=== PATIENT | female | born 1950 | race Hispanic/Latino ===

== ENCOUNTER 2019-12-27 14:21 | Emergency (ER) | payer MEDICARE ==
[~2019-12-27] VITALS: Ht 149.9 cm; Wt 73.9 kg
--- NOTE | 2019-12-27 15:00 | Emergency Department Note ---
History of Present Illnes History of Present Illness Chief Complaint: General Medicine Complaints History of Present Illness This is a 69 year old female STATES DIARRHEA AND FEVER X 3 DAYS BUT HAS NOW RESOLVED, AND NO COVID TESTING YET. STATES HERE FOR TESTING OF COVID TODAY. BROUGHT ADULT SON TO GET TESTED WELL. SAT 98 RA. Historian: Patient General Helper Required: No Onset (how long ago): day(s) (4) Radiation: Reports non-radiation Severity: moderate Onset quality: gradual Timing of current episode: intermittent Progression: improving Chronicity: new Context: Denies recent illness Relieving factors: none Exacerbating factors: none Associated symptoms: Reports denies other symptoms, Reports fever/chills, Reports other (DIARRHEA) Past Medical/Family History Physician Review I have reviewed the patient's past medical and family history. Any updates have been documented here. Past Medical History Recent Fever: No Clinical Suspicion of Infectio: No New/Unexplained Change in Ment: No Past Medical History: Hypertension, Diabetes, Hyperlipedemia Other Medical History: GERD Past Surgical History: None Social History Smoking Cessation: Never Smoker Counseling Performed: No Alcohol Use: None Any Illegal Drug Use: No TB Exposure/Symptoms: No Family History Family history of heart diseas: No Other Any Pre-Existing Lines (PICC,: No Review of Systems Review of Systems Constitutional: Reports as per HPI, Reports chills, Reports fever EENTM: Reports no symptoms Cardiovascular: Reports no symptoms Respiratory: Reports no symptoms Gastrointestinal: Reports as per HPI, Reports diarrhea; Denies nausea, Denies vomiting Genitourinary: Reports no symptoms Musculoskeletal: Reports no symptoms Integumentary: Reports no symptoms Neurological: Reports no symptoms Psychological: Reports no symptoms Endocrine: Reports no symptoms Hematological/Lymphatic: Reports no symptoms Physical Exam Related Data Allergies: Coded Allergies: No Known Allergies (Unverified , 12/27/19) Triage Vital Signs Vital Signs Date Time Temp Pulse Resp B/P (MAP) Pulse Ox O2 Delivery O2 Flow Rate FiO2 12/27/19 14:30 98.7 92 16 133/77 99 Room Air Vital signs reviewed: Yes Physical Exam CONSTITUTIONAL Constitutional: Present well-developed, Present well-nourished HENT HENT: Present normocephalic, Present atraumatic, Present oropharynx clear/moist, Present nose normal HENT L/R: Present left ext ear normal, Present right ext ear normal EYES Eyes: Reports PERRL, Reports conjunctivae normal NECK Neck: Present ROM normal PULMONARY Pulmonary: Present effort normal, Present breath sounds normal CARDIOVASCULAR Cardiovascular: Present regular rhythm, Present heart sounds normal, Present capillary refill normal, Present normal rate GASTROINTESTINAL Abdominal: Present soft, Present nontender, Present bowel sounds normal GENITOURINARY Genitourinary: Present exam deferred SKIN Skin: Present warm, Present dry MUSCULOSKELETAL Musculoskeletal: Present ROM normal NEUROLOGICAL Neurological: Present alert, Present oriented x 3, Present no gross motor or sensory deficits PSYCHOLOGICAL Psychological: Present mood/affect normal, Present judgement normal Assessment & Plan Medical Decision Making MDM DIARRHEA WHICH HAS RESOLVED, STILL WITH INTERMITTENT F/C AND ACHY ALL OVER Reassessment Reassessment GET COVID TEST, PLENTY OF FLUIDS, SELF-QUARANTINE, PRONING, F/U PCP Assessment & Plan Final Impression: (1) COVID-19 (2) Diarrhea Depart Disposition: HOME, SELF-CARE Last Vital Signs Date Time Temp Pulse Resp B/P (MAP) Pulse Ox O2 Delivery O2 Flow Rate FiO2 12/27/19 14:30 98.7 92 16 133/77 99 Room Air RODRIGO ALFONSO MD Dec 27, 2019 15:00
--- OUTSIDE RECORDS SUMMARY | 2019-12-27 15:08 | XMS REPORT | Continuity of Care Document ---
Author Author [facility] t Organization [facility] Address [address] [place] [id number] Phone Unavailable Care Team Providers Care Grain Spouter Name Role Phone Boogie ABDI, S Mimiba PCP Boogie ABDI, S Misba Attphys Mauro ABDI, C Axel Attphys Nikos ABDI, L Siomara Attphys Guera PRODUCT TRANSFER PUMPER, G Milagros Attphys Kindra DDS, T [facility] Payers Payer Name Policy Type Policy Number Effective Date Expiration Date Luba mcclain [facility] MEDIC[facility] HMOAMERIVANTAGExxxxx [id number].[id number], [place] [address] xxxxxxxxx 2019 00:00:00 [facility] [place] MEDICAIDTP24 QUALIFIED MEDICARE [id number], [place] [address] xxxxxxxxx 2017 00:00:00 [facility] PLANFINANCIAL ASSISTANCE PROGRAMxxx xxx2018-01/23/[id number] [place] [address] xxxxxx 2018 00:00:00 01-23 23:59:59 [facility] Problems Condition Name Condition Details Condition Category Status Onset Date Resolution Date Last Treatment Date Treating Clinician Comments Source Dental caries extending into dentin Dental caries extending into dentin Disease Active 2017-04-18 00:00:00 [facility] Edentulism Edentulism Disease Active 2017-04-06 00:00:00 [facility] Chronic periodontitis, localized, severe Chronic perio dontitis, localized, severe Disease Active 2016-11-13 00:00:00 [facility] Dental filling status Dental filling status Disease Active 201 11-25-12 00:00:00 [facility] Pain Pain Disease Active 2016-04-26 00:00:00 [facility] Severe uncontrolled diabetes mellitus Severe uncontrolled di abetes mellitus Disease Active 2015-09-23 00:00:00 [facility] Obesity, Class II, BMI 35-39.9 Obesity, Class II, BMI 35-39.9 Disea se Active 2015-09-23 00:00:00 [facility] ealth Elbow pain, left Elbow pain, left Disease Active 2013-08-31 00:00:00 [facility] Lesion of lip Lesion of lip Disease Active 2011-03-17 00:00:00 [facility] Rotator cuff disorder Rotator cuff disorder Disease Active 200 02-07-16 00:00:00 [facility] Polyneuropathy in diabetes(357.2) Polyneuropathy in diabetes(357 .2) Disease Active 2008-12-03 00:00:00 [facility] Allergies, Adverse Reactions, Alerts This patient has no known allergies or adverse reactions. Family History Family Member Diagnosis Comments Start Date Stop Date Source Natural brother Diabetes [facility] alth Natural father Heart [facility] Natural sister Diabetes [facility] Natural sister Heart [facility] Social History Social Habit Start Date Stop Date Quantity Comments Source Sex Assigned At [facility] Alcohol intake 2019-08-05 00:00:00 2019-08-05 00:00:00 Current non-drinker of alcohol (finding) [facility] History SDOH Food Worry 2018-06-20 00:00:00 2018-06-20 00:00:00 1 [facility] History [facility] Food Scarcity 2018-06-20 00:00:00 2018-06-20 00:00:00 1 [facility] Smoking Status Start Date Stop Date Source Never smoker [facility] Medications Ordered Medication Name Filled Medication Name Start Date Stop Da te Current Medication? Ordering Clinician Indication Dosage Frequency Signature (SIG) Comments Components Source acetaminophen-codeine (TYLENOL/CODEINE #3) 300-30 mg per tab let 2019-12-02 00:00:00 Yes Right hand pain Take 1 po q 4 h ours as needed for pain. [facility] insulin detemir U-100 (LEVEMIR FLEXTOUCH) 100 unit/mL (3 mL) Pen 2019-09-02 00:00:00 Yes Severe uncontrolled diabetes mellitus 60 U QD Inject 60 Units under the skin daily. [facility] albuterol 90 mcg/actuation inhaler 2019-08-05 00:00:00 Y es Cough 2{puff} Inhale 2 Puffs by mouth 4 times daily as needed for Wheezing. [facility] benzonatate (TESSALON PERLES) 100 mg capsule 00:00:00 2019-08-13 23:59:00 No Cough 100mg Take 1 capsule by mouth 3 times daily as needed for up to 7 days for Cough. [facility] polyethylene glycol (GOLYTELY) 236-22.74-6.74 -5.86 gram ora l solution 2019-07-28 00:00:00 Yes History of colon polyps Add lukewarm drinking water to the fill enzo (4 liters) and shake. Drink as directed by your doctor.. [facility] linaGLIPtin (TRADJENTA) 5 mg tablet 2019-07-07 00:00:00 Yes Type 2 diabetes mellitus treated with insulin 5mg QD Take 1 tablet by mo ut daily. [facility] insulin glargine U-300 conc (TOUJEO SOLOSTAR) 300 unit/mL (1 .5 mL) pen 2019-07-07 00:00:00 2019-09-02 00:00:00 No Type 2 d iabetes mellitus treated with insulin Inject 140 units sc q am an inject 60 units s c q pm. [facility] insulin aspart U-100 (NOVOLOG FLEXPEN U-100 INSULIN) 100 uni t/mL (3 mL) pen 2019-06-10 00:00:00 Yes Severe uncontrolled diabetes m ellitus 50U Inject 50 Units under the skin 3 times daily Use provided scale.. [facility] pen needle, diabetic 31 gauge x 3/16" needles 2019-06-10 00: 00:00 Yes Type 2 diabetes mellitus treated with insulin Inject under the skin 5 times daily. [facility] losartan (COZAAR) 50 mg tablet 2019-06-03 00:00:00 Yes Medication refill 25mg QD Take 0.5 tablets by mouth daily. [facility] pen needle, diabetic 31 gauge x 3/16" needles 20 13-02-25 00:00:00 2019-06-10 00:00:00 No Type 2 diabetes mellitus treated with insulin Inject under the skin 2times daily. [facility] INSULIN SYRINGE 1mL 30GX5/16" syringe-needle 201 02-04-24 00:00:00 2019-02-20 00:00:00 No Type 2 diabetes mellitus with insulin therapy Use as directed 2 veces al marian [facility] predniSONE (DELTASONE) 20 mg tablet 2018-12-24 00:00:00 Yes Right hand pain Take 3 tabs daily fo r three days then 2 tabs daily for three days then 1 tab daily for 7 days. [facility] triamcinolone (KENALOG) 0.025 % topical cream 2018-12-24 00: 00:00 Yes Right hand pain Q.5D Apply to affected area 2 times daily. [facility] acetaminophen-codeine (TYLENOL/CODEINE #3) 300-30 mg per tab let 2018-12-24 00:00:00 2019-12-02 00:00:00 No Right hand pain Take 1 po q 4 hours as needed for pain. [facility] clindamycin (CLEOCIN HCL) 150 mg capsule 2018-11 00:00:00 2019-01-04 23:59:00 No Right hand pain 150mg Take 1 ca psule by mouth 3 times daily for 10 days. [facility] INSULIN SYRINGE 1mL 30GX5/16" syringe-needle 201 02-01-22 00:00:00 2019-02-17 00:00:00 No Type 2 diabetes mellitus with insulin therapy Use as directed 2 veces al marian [facility] pravastatin (PRAVACHOL) 40 mg tablet 2018-12-12 00:00:00 Yes Hyperlipidemia, unspecified hyperlipidemia type 40mg Take 1 tablet by mouth at bedtime nightly. [facility] linaGLIPtin (TRADJENTA) 5 mg tablet 2018-11-05 00:00:0 0 2019-07-07 00:00:00 No Type 2 diabetes mellitus treated with insulin 5mg QD Take 1 tablet by mouth daily. [facility] hydrocortisone (ANUSOL-HC) 25 mg rectal suppository 10-07 00:00:00 Yes Constipation, unspecified constipation type 25mg Q.5D Insert 1 Suppository rectally 2 times daily. [facility] fluconazole (DIFLUCAN) 150 mg tablet 2018-10-07 00:00:00 Yes Postmenopausal atrophic vaginitis Take 1 po daily. [facility] ibuprofen (MOTRIN) 600 mg tablet 2018-06-20 00:00:00 2019-07 00:00:00 No Pain in joint of left shoulder 600mg Take 1 ta blet by mouth every 8 hours as needed for Pain Take with food. [facility] ealt Cyclobenzaprine (FLEXERIL) 5 mg tablet 2018-05-29 4 00:00:00 2019-07-28 00:00:00 No Pain in joint of left shoulder 5mg Take 1 tablet by mouth 3 times daily as needed for Muscle Spasms. [facility] th insulin glargine U-300 conc (TOUJEO SOLOSTAR) 300 unit/mL (1 .5 mL) pen 2018-06-13 00:00:00 2019-07-07 00:00:00 No Type 2 d iabetes mellitus treated with insulin Inject 140 units sc q am an inject 60 units s c q pm. [facility] fluticasone (FLONASE ALLERGY RELIEF) 50 mcg/actuation nasal spray 2018-05-08 00:00:00 Yes Nasal congestion 1{spray} QD Use 1 Marcy in each nostril daily. [facility] fluticasone (FLONASE ALLERGY RELIEF) 50 mcg/actuation nasal spray 2018-05-06 00:00:00 2019-07-28 00:00:00 No Non-seasonal allergic rhinitis due to pollen 1{spray} QD Use 1 Marcy in each nostril daily. [facility] ciclesonide (ZETONNA) 37 mcg/actuation nasal HFA inhaler 2018-05-02 00:00:00 Yes Acute upper respiratory infection 1{spray} QD Use 1 Marcy in each nostril daily. [facility] cetirizine (ZYRTEC) 10 mg tablet 2018-05-02 00:00:00 2019-07 00:00:00 No Acute upper respiratory infection 10mg QD Take 1 tablet by mouth d aily. [facility] azithromycin (ZITHROMAX) 250 mg tablet 6 00:00:00 2019-07-28 00:00:00 No Acute upper respiratory infection Take 2 tablets by mouth on the first day, then take one tablet every day for the next 4 days. [facility] benzonatate (TESSALON PERLES) 100 mg capsule 201 01-06-06 00:00:00 2019-07-28 00:00:00 No Acute upper respiratory infection 100mg Take 1 capsule by mouth 3 times daily as needed for Cough. [facility] blood glucose test strips 2018-03-11 00:00:00 2019-07-28 00: 00:00 No Type 2 diabetes mellitus treated with insulin U se to check Blood Glucose two times a day (Pt is on insulin). [facility] BLOOD GLUCOSE METER monitoring kit 2018-03-11 00:00:00 00:00:00 No Type 2 diabetes mellitus treated with insulin uSE DIRECTED [facility] lancets 33 gauge Misc 2018-03-11 00:00:00 2019-07-28 00:00:0 0 No Type 2 diabetes mellitus treated with insulin CHECK BOOD SUGAR tw ice a day [facility] levothyroxine (SYNTHROID) 50 mcg tablet 00:00:00 2019-07-28 00:00:00 No Acquired hypothyroidism 50ug QD Take 1 tablet b y mouth daily. [facility] losartan (COZAAR) 50 mg tablet 2018-03-11 00:00:00 00:00:00 No Medication refill 25mg QD Take 0.5 tablets by mouth daily. [facility] lancets 2018-03-06 00:00:00 Yes Type 2 diabetes mellitus treated without insulin Check sugars three times daily. [facility] blood glucose test strips 2018-03-06 00:00:00 Yes Type 2 diabetes mellitus treated without insulin Check sugars three times daily. [facility] Insulin [place], Disposable, (NOVOFINE 32) 32 gauge x 1/4" N dle 2017-12-06 00:00:00 Yes Type 2 diabetes mellitus treated with in sulin by [facility]Non- Drug; Combo Route) route. [facility] pen needle, diabetic (TRUEPLUS PEN NEEDLE) 31 gauge x 3/16" needles 2017-12-06 00:00:00 2019-07-28 00:00:00 No Type 2 diabetes melli tus treated with insulin Q.5D Inject under the skin 2 times daily. [facility] nystatin (MYCOSTATIN) topical cream 2017-10-09 00:00:0 0 2019-07-28 00:00:00 No Type 2 diabetes mellitus treated with insulin Q.5D Apply to affected area 2 times daily. [facility] insulin REGULAR 100 unit/mL injection 2017-10-09 00:00 :00 2019-07-02 00:00:00 No Type 2 diabetes mellitus treated with insulin Check sugars three times daily If blood sugars 150 to 200 inject 2 units sc 200 to 250 inject 4 units sc250 to 300 inject 6 units sc 300 to 350 inject 8 units sc More than 350 call MD. [facility] blood glucose meter 2017-08-20 00:00:00 Yes Type 2 diabetes mellitus treated with insulin Use as directed.. [facility] beclomethasone (QVAR) 80 mcg/actuation inhaler 2017-06-05 00 :00:00 Yes Cough 2{puff} Q.5D Inhale 2 Puffs by mouth 2 times daily. [facility] dexlansoprazole (DEXILANT) 30 mg delayed release capsule 2017-02-22 00:00:00 2019-07-28 00:00:00 No Abdominal pain, epigastric 30mg QD Take 1 capsule by mouth daily. [facility] albuterol (VENTOLIN HFA,PROVENTIL HFA,PROAIR HFA) 90 mcg/act uation inhaler 2016-10-11 00:00:00 2019-08-05 00:00:00 No Cough 2{puff} Inhale 2 Puffs by mouth 4 times daily as needed for Wheezing or Shortness of Breath. 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 [facility] insulin detemir (LEVEMIR) 100 unit/mL injection 2016-05-04 00:00:00 2019-06-10 00:00:00 No Type 2 diabetes mellitus with other circulatory complication Inject 120 units under skin every morning and 100 units in the evening. [facility] insulin detemir (LEVEMIR) 100 unit/mL injection 2016-03-07 00:00:00 2019-06-10 00:00:00 No Type 2 diabetes with nephropathy Inject 120 sc q am and 90 units sc q pm. [facility] insulin detemir (LEVEMIR) 100 unit/mL injection 2016-01-12 00:00:00 2019-06-10 00:00:00 No Polyneuropathy in diabetes(357.2) Inject under the rwaj264 units every morning and 30 units every evening [facility] blood glucose test strips 2015-12-06 00:00:00 2019-07-28 00: 00:00 No Polyneuropathy in diabetes(357.2) Check sugars three times a day. [facility] dicyclomine (BENTYL) 20 mg tablet 2015-05-17 00:00:00 2019 00:00:00 No Type II or unspecified type diabetes tanner litus without mention of complication, uncontrolled Take 1 po qid prn abd cramping. [facility] triamcinolone (KENALOG) 0.025 % topical cream 11-05-21 00:00:00 2019-07-28 00:00:00 No Type II or unspecifi ed type diabetes mellitus without mention of complication, uncontrolled Q.5D Apply to affe cted area 2 times daily Apply small amountto dry skin over neck q twice daily. [facility] triamcinolone (KENALOG) 0.025 % topical cream 2015-03-24 00: 00:00 Yes Medication refill Q.5D Apply to affected area 2 times daily. [facility] predniSONE (DELTASONE) 20 mg tablet 2014-09-09 00:00:00 Yes Rash and other nonspecific skin eruption Take 3 tabs da jerome for 3 days, then 2 tablets daily for 3 days, then 1 tablet daily for 7 days. [facility] ketoconazole (NIZORAL) 2 % shampoo 2014-06-23 00:00:00 202 00:00:00 No Polyneuropathy in diabetes(357.2) Apply small amount to hair and rinse twice a week. [facility] nystatin (MYCOSTATIN) topical cream 2014-06-23 00:00:0 0 2019-07-28 00:00:00 No Polyneuropathy in diabetes(357.2) Q.5D Apply to affected area 2 times daily. [facility] clotrimazole (LOTRIMIN) 1 % external solution 08-12-14 00:00:00 2019-07-28 00:00:00 No Onychomycosis File nails and apply 2 drops 2 times day for 1 year. [facility] blood glucose test strips 2013-02-13 00:00:00 2019-07-28 00: 00:00 No Polyneuropathy in diabetes(357.2) Check q am and q pm [facility] glucose blood test strips (PRECISION XTRA TEST STRIPS) strip 2012-02-05 00:00:00 2019-07-28 00:00:00 No DM (diabetes mellitus) Use as directed. [facility] PRECISION XTRA GLUCOMETER 2009-12-21 00:00:00 Yes Polyneuropathy in diabetes(357.2) check q am [facility] Immunizations Ordered Immunization Name Filled Immunization Name Date Status Comments Source Influenza, Vaccine<FLUCELVAX>(Multi-Dose) 2019-03-11 00:00 :00 Completed [facility] PCV 13 (Pnuemococcal Conjugated 13 Valent) 2018-03-11 00:0 0:00 Completed [facility] Influenza, Vaccine<FLUCELVAX>(Multi-Dose) 2018-03-01 00:00 :00 Completed [facility] Influenza Vaccine, Seasonal, Injectable 2017-03-30 00:00:0 0 Completed [facility] Influenza Vaccine 2016-03-02 00:00:00 Completed [facility] Tdap Tetanus, diphtheria, acellular pertussis Vaccine 2015-10-13 00:00:00 Completed [facility] Influenza Vaccine 2015-02-24 00:00:00 Completed [facility] Influenza Vaccine 2014-03-17 00:00:00 Completed [facility] PPV 23 Pneumococcal Polysaccaride 2014-03-17 00:00:00 Comp leted [facility] Influenza Vaccine 2013-03-05 00:00:00 Completed [facility] Influenza Vaccine 2011-03-16 00:00:00 Completed [facility] Influenza Vaccine 2010-04-01 00:00:00 Completed [facility] Influenza Vaccine 2009-04-05 00:00:00 Completed [facility] Vital Signs Vital Name Observation Time Observation Value Comments Source Systolic blood pressure 2019-08-05 22:17:00 125 mm[Hg] [facility] Diastolic blood pressure 2019-08-05 22:17:00 63 mm[Hg] [facility] Heart rate 2019-08-05 22:17:00 82 /min [facility] Body temperature 2019-08-05 22:17:00 36.67 [place] [facility] Respiratory rate 2019-08-05 22:17:00 18 /min [facility] Oxygen saturation in Arterial blood by Pulse oximetry 08-04 22:17:00 100 /min [facility] Body height 2019-08-05 10:10:00 139.7 cm [facility] Body weight 2019-08-05 10:10:00 71.668 kg [facility] BMI 2019-08-05 10:10:00 36.72 kg/m2 [facility] Procedures Procedure Date / Time Performed Performing Clinician [facility] ECHG EKG PROC 12 LEAD EKG; TRACING ONLY 2019-08-05 22:23:57 Siomara Knott [facility] XRAY CHEST 2 VIEWS 2019-08-05 14:46:06 Jeannette Gee [facility] GLUCOSE POC 2019-08-05 14:11:00 Unknown, Provider Todd sheryl [facility] ECHG EKG PROC 12 LEAD EKG; TRACING ONLY 2019-08-05 11:10:21 Late ef, [facility] NONINVASV OXYGEN SATUR;SINGLE 2019-08-05 10:47:38 Boogie, [facility] MICROALBUMIN / CREATININE URINE RATIO 2019-07-09 10:35:00 Boogie , [facility] URINALYSIS 2019-07-09 10:35:00 Boogie, [facility] URINALYSIS 2019-07-09 10:35:00 Boogie, [facility] HEMOGLOBIN A1C 2019-07-09 07:36:00 Boogie, [facility] CBC/DIFF 2019-07-09 07:36:00 Boogie, [facility] h BASIC METABOLIC PANEL 2019-07-09 07:36:00 Boogie, Rossolini S [facility] LIPID PROFILE 2019-07-09 07:36:00 Boogie, Rossoliniba S [facility] LIVER PROFILE 2019-07-09 07:36:00 Boogie, [facility] h THYROID STIMULATING HORMONE (TSH) 2019-07-09 07:36:00 Boogie, Dc sba [facility] VIT D, 25-HYDROXY 2019-07-09 07:36:00 Boogie, [facility] CBC 2019-07-09 07:36:00 Boogie, [facility] DIABETIC FOOT EXAM 2019-07-02 08:29:46 Saúl Hyman Brooks [facility] URIC ACID 2019-01-21 07:15:00 Saúl Hyman [facility] HEMOGLOBIN A1C 2019-01-21 07:15:00 Saúl Hyman [facility] BASIC METABOLIC PANEL 2019-01-21 07:15:00 BoogieSaúl degroot [facility] LIPID PROFILE 2019-01-21 07:15:00 Saúl Hyman [facility] Plan of Care Planned Activity Planned Date Details Comments Source [facility] Scheduled Test 2024-03-11 00:00:00 Screening for gasper gnant neoplasm of colon (procedure) [code = 018488114] [facility] Scheduled Test 2020-07-09 00:00:00 Hemoglobin A1c giana surement (procedure) [code = 48784535] [facility] Scheduled Test 2020-07-02 00:00:00 DM Foot Exam (Year ly) [code = DM Foot Exam (Yearly)] [facility] Scheduled Test 2019-11-06 00:00:00 DM Retinal Exam (Y early) [code = DM Retinal Exam (Yearly)] [facility] Scheduled Test 2019-08-01 00:00:00 Breast Cancer Scrn (Yearly) [code = Breast Cancer Scrn (Yearly)] [facility] Encounters Start Date/Time End Date/Time Encounter Type Admission Type Attendi RUST Care Department Encounter ID Source 2019-06-10 00:00:00 2019-06-10 00:00:00 Outpatient [facility] [id number] [facility] 2019-04-09 00:00:00 2019-04-09 00:00:00 Outpatient [facility] [id number] [facility] 2019-03-24 00:00:00 2019-03-24 00:00:00 Outpatient [facility] [id number] [facility] 2019-03-11 09:19:23 2019-03-11 09:19:23 Outpatient [facility] [id number] [facility] 2019-03-11 00:00:00 2019-03-11 00:00:00 Outpatient [facility] [id number] [facility] 2019-03-10 00:00:00 2019-03-10 00:00:00 Outpatient [facility] [id number] [facility] 2019-02-04 15:33:19 2019-02-04 15:33:19 Outpatient [facility] [id number] [facility] 2019-01-21 07:15:26 2019-01-21 07:15:26 Outpatient [facility] [id number] [facility] 2019-01-21 00:00:00 2019-01-21 00:00:00 Outpatient [facility] [id number] [facility] 2018-12-24 14:31:14 2018-12-24 14:31:14 Outpatient [facility] [id number] [facility] 2018-12-24 13:43:52 2018-12-24 13:43:52 Outpatient [facility] [id number] [facility] 2018-12-24 00:00:00 2018-12-24 00:00:00 Outpatient [facility] [id number] [facility] 2018-11-07 00:00:00 2018-11-07 00:00:00 Outpatient [facility] [id number] [facility] 2018-11-05 09:08:04 2018-11-05 09:08:04 Outpatient [facility] [id number] [facility] 2018-11-05 08:42:47 2018-11-05 08:42:47 Outpatient [facility] [id number] [facility] 2018-11-05 08:35:26 2018-11-05 08:35:26 Outpatient [facility] [id number] [facility] 2018-11-05 00:00:00 2018-11-05 00:00:00 Outpatient [facility] [id number] [facility] 2018-10-11 08:13:19 2018-10-11 08:13:19 Outpatient [facility] [id number] [facility] 2018-10-07 07:24:46 2018-10-07 07:24:46 Outpatient [facility] [id number] [facility] 2018-08-26 00:00:00 2018-08-26 00:00:00 Outpatient [facility] [id number] [facility] 2018-08-19 07:00:14 2018-08-19 07:00:14 Outpatient [facility] [id number] [facility] 2018-08-19 00:00:00 2018-08-19 00:00:00 Outpatient [facility] [id number] [facility] 2018-07-31 08:03:46 2018-07-31 08:03:46 Outpatient [facility] [id number] [facility] 2018-07-24 00:00:00 2018-07-24 00:00:00 Outpatient [facility] [id number] [facility] 2018-07-16 10:41:38 2018-07-16 10:41:38 Outpatient [facility] [id number] [facility] 2018-07-16 00:00:00 2018-07-16 00:00:00 Outpatient [facility] [id number] [facility] 2018-06-20 08:49:41 2018-06-20 08:49:41 Outpatient [facility] [id number] [facility] 2018-06-20 08:24:29 2018-06-20 08:24:29 Outpatient [facility] [id number] [facility] 2018-06-19 00:00:00 2018-06-19 00:00:00 Outpatient [facility] [id number] [facility] 2018-06-13 06:46:45 2018-06-13 06:46:45 Outpatient [facility] [id number] [facility] 2018-06-07 13:53:35 2018-06-07 13:53:35 Outpatient [facility] [id number] [facility] 2018-06-07 06:50:19 2018-06-07 06:50:19 Outpatient [facility] [id number] [facility] 2018-06-07 00:00:00 2018-06-07 00:00:00 Outpatient [facility] [id number] [facility] 2018-05-02 08:26:59 2018-05-02 08:26:59 Outpatient [facility] [id number] [facility] 2018-03-22 09:42:59 2018-03-22 09:42:59 Outpatient [facility] [id number] [facility] 2018-03-11 06:48:24 2018-03-11 06:48:24 Outpatient [facility] [id number] [facility] 2017-04-18 00:00:00 2017-04-18 00:00:00 Outpatient [facility] [id number] [facility] 2017-04-09 06:57:31 2017-04-09 06:57:31 Outpatient [facility] [id number] [facility] 2017-04-02 13:15:08 2017-04-02 13:15:08 Outpatient [facility] [id number] [facility] 2017-03-30 07:51:20 2017-03-30 07:51:20 Outpatient [facility] [id number] [facility] 2017-03-01 07:12:34 2017-03-01 07:12:34 Outpatient [facility] [id number] [facility] 2017-02-27 06:51:23 2017-02-27 06:51:23 Outpatient [facility] [id number] [facility] 2017-02-22 07:55:53 2017-02-22 07:55:53 Outpatient [facility] [id number] [facility] 2017-02-22 00:00:00 2017-02-22 00:00:00 Outpatient [facility] [id number] [facility] 2017-02-19 13:30:40 2017-02-19 13:30:40 Outpatient [facility] [id number] [facility] 2017-02-19 00:00:00 2017-02-19 00:00:00 Outpatient [facility] [id number] [facility] 2017-02-16 00:00:00 2017-02-16 00:00:00 Outpatient [facility] [id number] [facility] 2016-10-11 00:00:00 2016-10-11 00:00:00 Outpatient [facility] [id number] [facility] Results Test Description Test Time Test Comments Results Result Comments Source 12 LEAD EKG 2019-08-06 09:24:23 12 [facility]AD [facility]: [id number] Name: BARRY Landeros Department: 6520Patient ID: [id number] Room: Gender: Curatorial Assistant: [facility]: 1950 Requested By: SIOMARA Ahn Number: [id number] Cherry MD: Sebastian ADHIKARI MeasurementsIntervals [place] Rate: 71 P: 47PR: 166 QRS: -6QRSD: 82 T: 26QT: 368 QTc: 401 Interpretive StatementsSINUS RHYTHMLOW QRS VOLTAGE IN PRECORDIAL LEADSMotion artifactPoor R Wave ProgressionAbnormal ECGElectronically Signed On 08-06-2019 9:24:18 CDT by Sebastian MCLAIN [facility] XRAY CHEST 2 VIEWS 2019-08-05 14:47:15 IMPRESSIO N: No acute pleuropulmonary abnormality. Signed By: Preston Griggs MD, 08/05/2019 2:47 PM Interface, Rad/Mammog In - 08/05/2019 2:52 PM CDTXRAY CHEST 2 VIEWSDATE: 08/05/2019 2:46 PMCLINICAL INDICATION: cough COMPARISON: Chest x-ray performed 11/24/2008TECHNIQUE: PA and lateral views of the chest are obtained and submittedfor interpretation. DISCUSSION: The lungs are clear. No consolidation or airspace disease is identified.Costophrenic angles are sharp. There is no pleural effusion orpneumothorax. Cardiomediastinal silhouette is normal in size, contour and shape. The tracheal lumen is midline. No destructive or traumatic bony lesion is seen. Thoracic spondylosis ispresent.Surrounding soft tissues are unremarkable.IMPRESSIONIMPRESSION:No acute pleuropulmonary abnormality.Signed By: Preston Griggs MD, 08/05/2019 2:47 PM [place] ([facility]) POCT GLUCOSE POC docked device 2019-08-05 14:30:00 Test Item Glucose POC (test code = 09540158) 187 mg/dL 74-106 H Lab Interpretation (test code = 70435-8) Abnormal [place] ([facility])12 LEAD [id number] 11:55:4312 LEAD EKG FOR [facility] Test Date: [id number] Name: BARRY ESPINOZA Department: [address] [place] [address] ID: [id number] Room: Gender: F Curatorial Assistant: [id number]: 1950 Requested By: SAÚL HYMAN SOrder Number: [id number] Reading MD: Kacy Arciniega MD MeasurementsIntervals [place] Rate: 74 P: 29PR: 164 QRS: -11QRSD: 89 T: 32QT: 357 QTc: 398 Interpretive StatementsSINUS RHYTHMElectronically Signed On 08-05-2019 11:55:39 CDT by Kacy Arciniega MD [facility] [place] ([facility])Vitamin D, 89-Ktufeqnasusttmclv5008-63-13 11:51:00* Test Item Value Reference Range Interpretation Comments Vit D, 25-Hydroxy (test code = 45795787) 19.4 ng/mL 30-100 L Vitamin D Interpretation (test code = 91072378) Deficient Suffic ient A Sufficient: >30.0Insufficient: 20.0 - 29.9Deficient: <20.0 Lab Interpretation (test code = 07922-2) Abnormal [place] ([facility])Hemoglobin [id number] 14:18:00* Test Item Value Reference Range Interpretation Comments Hemoglobin A1c (test code = 4548-4) 9.3 % 4.3-6.1 H Estimated Average Glucose (test code = 29925297) 220 mg/dL 70-11 0 H Lab Interpretation (test code = 46595-7) [facility]-46 14:00:00* Test Item Value Reference Range Interpretation Comments WBC (test code = 6690-2) 7.5 K/uL 4.5-11 RBC (test code = 789-8) 4.30 4.20- 5.40 M/uL Hemoglobin (test code = 718-7) 13.1 g/dL 12-16 Hematocrit (test code = 4544-3) 40.7 % 37-47 MCV (test code = 787-2) 94.7 fL 82-92 H MCH (test code = 785-6) 30.5 pg 27-32 MCHC (test code = 786-4) 32.2 g/dL 32-36 RDW (test code = 35594-3) 42.0 fL 36.4-46.3 Platelet (test code = 777-3) 270 K/uL 150-400 Mean Platelet Volume (test code = 08511-5) 11.2 fL 9.4-12.4 Percent NRBC (test code = 23603018) 0.0 % Neutrophil (test code = 770-8) 59.7 % 34-70 Lymphs (test code = 736-9) 31.6 % 20-50 Monocytes (test code = 5905-5) 6.7 % 5-12 Eos (test code = 713-8) 1.5 % 0.7-5 Basos (test code = 706-2) 0.1 % 0.1-1.2 Immature Granulocytes (test code = 87447437) 0.4 % 0-0.5 Neutrophils (Absolute) (test code = 68175975) 4.45 K/uL 1.56-6.1 3 Lymphs (Absolute) (test code = 14721254) 2.36 K/uL 1.18-3.74 Monocytes(Absolute) (test code = 78388587) 0.50 K/uL 0.24-0.36 H Eos (Absolute) (test code = 54393137) 0.11 K/uL 0.04-0.36 Baso (Absolute) (test code = 97844045) 0.01 K/uL 0.01-0.08 Immature Grans (Abs) (test code = 59496476) 0.03 K/uL 0-0.03 Absolute NRBC (test code = 39829025) 0.00 K/uL Lab Interpretation (test code = 67215-7) [facility] Wfawx8109-06-34 13:59:00* Test Item Value Reference Range Interpretation Comments Microalbumin, Random (test code = 28844572) 4.7 mg/dL <30.0 Creatinine, Urine (test code = 48424272) 77 mg/dL 20-320 Urine Microalbumin (test code = 26965652) 61.0 mg/g 0-30 H Lab Interpretation (test code = 61323-4) Abnormal [facility] [Thyroid Stimulating Hormone]2019-07-09 13:37:00* Test Item Value Reference Range Interpretation Comments TSH (test code = 32496655) 9.96 0.45- 5.33 uIU/mL H If , please see the following reference ranges (not verified by lab): 1st Trimester: 0.05 -3.70 uIU/mL2nd Trimester: 0.31 -4.35 uIU/mL3rd Trimester: 0.41 - 5.18 uIU/mL Lab Interpretation (test code = 87473-9) [facility] Gsntm1428-53-65 13:29:00* Test Item Value Reference Range Interpretation Comments Sodium (test code = 2951-2) 136 mmol/L 136-145 Potassium (test code = 2823-3) 4.6 mmol/L 3.5-5.1 Chloride (test code = 2075-0) 100 mmol/L 98-107 CO2 (test code = 61976961) 26 mmol/L 21-31 Urea Nitrogen (test code = 90991754) 15.0 mg/dL 7-25 Creatinine (test code = 98752682) 0.8 mg/dL 0.6-1.2 Glucose (test code = 89925300) 288 mg/dL 70-110 H Calcium (test code = 85314990) 9.1 mg/dL 8.6-10.3 GFR, Estimated (test code = 69341174) 72 >=90 mL/min/1.73 m2 L Anion Gap (test code = 56740426) 10 mmol/L 5-16 Lab Interpretation (test code = 37352-7) Abnormal [facility]28 13:29:00* Test Item Value Reference Range Interpretation Comments Cholesterol (test code = 2093-3) 205.0 mg/dL <=200.0 H Triglyceride (test code = 79005560) 200 mg/dL <150 H HDL (test code = 2085-9) 55.0 mg/dL See Reference Range Narrative . LDL (test code = 87350-4) 110 mg/dL <100 H Op timal: < 100.0 mg/dLNear Optimal: 120-129 mg/dLBorderline: 130-159 mg/dLHigh: 160-189 mg/dLVery High: >=190 mg/dL Patient Fasting? (test code = 53712253) Yes Lab Interpretation (test code = 69204-4) Abnormal [facility] Suicebk8047-56-59 13:29:00* Test Item Value Reference Range Interpretation Comments Bilirubin, Total (test code = 2885-2) 0.2 mg/dL 0.2-1.2 Alkaline Phosphatase (test code = 80120091) 136 U/L 34-104 H AST (test code = 86358696) 14 U/L 13-39 Direct Bilirubin (test code = 1968-7) 0.0 mg/dL 0-0.2 ALT (test code = 31698137) 19 U/L 7-52 Albumin (test code = 61711-0) 3.8 g/dL 3.7-5.3 Lab Interpretation (test code = 85593-4) Abnormal [facility] TpysqmBmjjaoarwd4564-15-10 13:12:00* Test Item Value Reference Range Interpretation Comments Color (test code = 33588849) Yellow Colorless, Straw, Yellow Clarity (test code = 07401875) Clear Clear Spec [place], Ur (test code = 83742350) 1.020 1.001-1.035 pH, Ur (test code = 48027240) 6.0 5.0-8.0 Protein, Ur (test code = 11518302) Negative Negative mg/dL Glucose, Ur (test code = 28398261) 3+ Negative mg/dL A Ketone, Ur (test code = 51548605) Negative Negative mg/dL Bilirubin, Ur (test code = 99493316) Negative Negative mg/dL Nitrite, Ur (test code = 54505794) Negative Negative Leukocyte (test code = 38536420) Negative Negative mg/dL Blood, Ur (test code = 50612999) Negative Negative mg/dL Urobilinogen, Ur (test code = 39329165) <1.0 <1.0 EU/dL Lab Interpretation (test code = 02502-2) [facility] [id number] 08:29:46Saúl Hyman MD 07/02/2019 10:42 AMDiabetic Foot Exam was performed at 07/02/2019 8:29 AM. Right foot sensation is reduced, right foot pulses are reduced, right foot appearance is abnormal. Left foot sensation is reduced, left foot pulses are reduced, left foot appearance is abnormal. [facility]
--- OUTSIDE RECORDS SUMMARY | 2019-12-27 15:08 | XMS REPORT | Clinical Summary ---
Author Author [facility] Organization [facility] Address Unknown Phone Unavailable Care Team Providers Care Buttermaker Continuous Churn Name Role Phone Saúl Hyman MD PCP Allergies No Known Allergies Medications End Date Status Medication Sig Dispensed Refills Start Date Active PRECISION XTRA check q am 1 0 GLUCOMETERIndications: 0 Polyneuropathy in diabetes(357.2) Active predniSONE (DELTASONE) 20 Take 3 tabs 22 tablet 0 mg tabletIndications: daily for 3 5 Rash and other days, then 2 nonspecific skin eruption tablets daily for 3 days, then 1 tablet daily for 7 days. Active triamcinolone (KENALOG) Apply to 80 g 0 0.025 % topical affected area 5 creamIndications: 2 times Medication refill daily. Active beclomethasone (QVAR) 80 Inhale 2 8.7 g 3 0 mcg/actuation Puffs by 8 inhalerIndications: Cough mouth 2 times daily. Active blood glucose Use as 1 Kit 0 meterIndications: Type 2 directed.. 8 diabetes mellitus treated with insulin Active Insulin [place], by 100 Each 11 Disposable, (NOVOFINE 32) [facility]Non[place] 8 32 gauge x 1/4" g; Combo NdleIndications: Type 2 Route) route. diabetes mellitus treated with insulin Active lancetsIndications: Type Check sugars 150 Each 11 2 diabetes mellitus three times 8 treated without insulin daily. Active blood glucose test Check sugars 150 Each stripsIndications: Type 2 three times 8 diabetes mellitus treated daily. without insulin Active ciclesonide (ZETONNA) 37 Use 1 [place] 6.1 g 0 1 mcg/actuation nasal HFA in each 8 inhalerIndications: Acute nostril upper respiratory daily. infection Active fluticasone (FLONASE Use 1 [place] 16 g 0 05/08 ALLERGY RELIEF) 50 in each 8 mcg/actuation nasal nostril sprayIndications: Nasal daily. congestion Active hydrocortisone Insert 1 12 3 (ANUSOL-HC) 25 mg rectal Suppository Suppository 9 suppositoryIndications: rectally 2 Constipation, unspecified times daily. constipation type Active fluconazole (DIFLUCAN) Take 1 po 3 tablet 0 150 mg tabletIndications: daily. 9 Postmenopausal atrophic vaginitis Active pravastatin (PRAVACHOL) Take 1 tablet 90 tablet 11 40 mg tabletIndications: by mouth at 9 Hyperlipidemia, bedtime unspecified nightly. hyperlipidemia type Active predniSONE (DELTASONE) 20 Take 3 tabs 22 tablet 0 mg tabletIndications: daily for 9 Right hand pain three days then 2 tabs daily for three days then 1 tab daily for 7 days. Active triamcinolone (KENALOG) Apply to 80 g 0 0.025 % topical affected area 9 creamIndications: Right 2 times hand pain daily. Active losartan (COZAAR) 50 mg Take 0.5 90 tablet 6 tabletIndications: tablets by 0 Medication refill mouth daily. Active insulin aspart U-100 Inject 50 45 Pen 3 06/10 (NOVOLOG FLEXPEN U-100 Units under 0 INSULIN) 100 unit/mL (3 the skin 3 mL) penIndications: times daily Severe uncontrolled Use provided diabetes mellitus scale.. Active pen needle, diabetic 31 Inject under 2 Box 11 0 gauge x 3/16" the skin 5 0 needlesIndications: Type times daily. 2 diabetes mellitus treated with insulin Active linaGLIPtin (TRADJENTA) 5 Take 1 tablet 30 tablet 3 mg tabletIndications: by mouth 0 Type 2 diabetes mellitus daily. treated with insulin Active polyethylene glycol Add lukewarm 4000 mL 0 07/27 (GOLYTELY) 236-22.74-6.74 drinking 0 -5.86 gram oral water to the solutionIndications: fill enzo (4 History of colon polyps liters) and shake. Drink as directed by your doctor.. Active albuterol 90 Inhale 2 20.1 g 0 mcg/actuation Puffs by 0 inhalerIndications: Cough mouth 4 times daily as needed for Wheezing. Active insulin detemir U-100 Inject 60 18 Pen 3 04/0 (LEVEMIR FLEXTOUCH) 100 Units under 0 unit/mL (3 mL) the skin PenIndications: Severe daily. uncontrolled diabetes mellitus Active acetaminophen-codeine Take 1 po q 4 60 tablet 3 (TYLENOL/CODEINE #3) hours as 0 300-30 mg per needed for tabletIndications: Right pain. hand pain 07/28/2019 Discontinued (Therapy comple belen) glucose blood test strips Use as 1 Box 2 (PRECISION XTRA TEST directed. 2 STRIPS) stripIndications: DM (diabetes mellitus) 07/28/2019 Discontinued (Reorder) blood glucose test Check q am 1 Box 3 01 stripsIndications: and q pm 3 Polyneuropathy in diabetes(357.2) 07/28/2019 Discontinued (Therapy comple belen) clotrimazole (LOTRIMIN) 1 File nails 30 mL 9 % external and apply 2 4 solutionIndications: drops 2 times Onychomycosis day for 1 year. 07/28/2019 Discontinued (Therapy comple belen) ketoconazole (NIZORAL) 2 Apply small 120 mL 0 0 % shampooIndications: amount to 5 Polyneuropathy in hair and diabetes(357.2) rinse twice a week. 07/28/2019 Discontinued (Therapy comple belen) nystatin (MYCOSTATIN) Apply to 30 g 3 05/29 topical creamIndications: affected area 5 Polyneuropathy in 2 times diabetes(357.2) daily. 07/28/2019 Discontinued (Therapy comple belen) dicyclomine (BENTYL) 20 Take 1 po qid 30 tablet 0 mg tabletIndications: prn abd 5 Type II or unspecified cramping. type diabetes mellitus without mention of complication, uncontrolled 07/28/2019 Discontinued (Reorder) triamcinolone (KENALOG) Apply to 15 g 0 0.025 % topical affected area 5 creamIndications: Type II 2 times daily or unspecified type Apply small diabetes mellitus without amountto dry mention of complication, skin over uncontrolled neck q twice daily. 07/28/2019 Discontinued (Reorder) blood glucose test Check sugars 100 Each 11 stripsIndications: three times a 6 Polyneuropathy in day. diabetes(357.2) 06/10/2019 Discontinued (Error) insulin detemir (LEVEMIR) Inject under 30 mL 11 100 unit/mL the skin 6 injectionIndications: 120 units Polyneuropathy in every morning diabetes(357.2) and 30 units every evening 06/10/2019 Discontinued (Error) insulin detemir (LEVEMIR) Inject 120 sc 190 mL 11 100 unit/mL q am and 90 6 injectionIndications: units sc q Type 2 diabetes with pm. nephropathy 06/10/2019 Discontinued (Error) insulin detemir (LEVEMIR) Inject 120 200 mL 11 100 unit/mL units under 6 injectionIndications: skin every Type 2 diabetes mellitus morning and with other circulatory 100 units in complication the evening. 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 long-term current use of insulin 08/05/2019 Discontinued (Therapy comple belen) albuterol (VENTOLIN Inhale 2 6.7 g 0 HFA,PROVENTIL HFA,PROAIR Puffs by 7 HFA) 90 mcg/actuation mouth 4 times inhalerIndications: Cough daily as needed for Wheezing or Shortness of Breath. 07/28/2019 Discontinued (Therapy comple belen) dexlansoprazole Take 1 60 capsule 3 (DEXILANT) 30 mg delayed capsule by 7 release mouth daily. capsuleIndications: Abdominal pain, epigastric 07/02/2019 Discontinued (Error) insulin REGULAR 100 Check sugars 4000 mL 11 10/09 unit/mL three times 8 injectionIndications: daily Type 2 diabetes mellitus If blood treated with insulin sugars 150 to 200 inject 2 units sc 200 to 250 inject 4 units sc 250 to 300 inject 6 units sc 300 to 350 inject 8 units sc More than 350 call MD. 07/28/2019 Discontinued (Therapy comple belen) nystatin (MYCOSTATIN) Apply to 30 g 3 09/25 topical creamIndications: affected area 8 Type 2 diabetes mellitus 2 times treated with insulin daily. 07/28/2019 Discontinued (Reorder) pen needle, diabetic Inject under 100 Each 11 11/25 (TRUEPLUS PEN NEEDLE) 31 the skin 2 8 gauge x 3/16" times daily. needlesIndications: Type 2 diabetes mellitus treated with insulin 07/28/2019 Discontinued (Reorder) blood glucose test Use to check 150 Each 11 stripsIndications: Blood Glucose 8 Medication refill, Type 2 two times a diabetes mellitus treated day (Pt is on with insulin insulin). 07/28/2019 Discontinued (Reorder) BLOOD GLUCOSE METER uSE 1 Kit 0 monitoring DIRECTED 8 kitIndications: Type 2 diabetes mellitus treated with insulin 07/28/2019 Discontinued (Reorder) lancets 33 gauge CHECK BOOD 100 Each 1 MiscIndications: Type 2 SUGAR twice a 8 diabetes mellitus treated day with insulin 06/02/2019 Discontinued losartan (COZAAR) 50 mg Take 0.5 90 tablet 6 tabletIndications: tablets by 8 Medication refill mouth daily. 07/28/2019 Discontinued (Therapy comple belen) levothyroxine (SYNTHROID) Take 1 tablet 90 tablet 3 50 mcg tabletIndications: by mouth 8 Acquired hypothyroidism daily. 07/28/2019 Discontinued (Therapy comple belen) cetirizine (ZYRTEC) 10 mg Take 1 tablet 30 tablet 0 tabletIndications: Acute by mouth 8 upper respiratory daily. infection 07/28/2019 Discontinued (Therapy comple belen) azithromycin (ZITHROMAX) Take 2 6 tablet 0 1 250 mg tabletIndications: tablets by 8 Acute upper respiratory mouth on the infection first day, then take one tablet every day for the next 4 days. 07/28/2019 Discontinued (Therapy comple belen) benzonatate (TESSALON Take 1 20 capsule 0 PERLES) 100 mg capsule by 8 capsuleIndications: Acute mouth 3 times upper respiratory daily as infection needed for Cough. 07/28/2019 Discontinued (Therapy comple belen) fluticasone (FLONASE Use 1 [place] 16 g 1 05/06 ALLERGY RELIEF) 50 in each 8 mcg/actuation nasal nostril sprayIndications: daily. Non-seasonal allergic rhinitis due to pollen 07/07/2019 Discontinued insulin glargine U-300 Inject 140 2000 mL 11 conc (TOUJEO SOLOSTAR) units sc q am 9 300 unit/mL (1.5 mL) an inject 60 penIndications: Type 2 units sc q diabetes mellitus treated pm. with insulin 07/28/2019 Discontinued (Therapy comple belen) ibuprofen (MOTRIN) 600 mg Take 1 tablet 60 tablet 2 tabletIndications: Pain by mouth 9 in joint of left shoulder every 8 hours as needed for Pain Take with food. 07/28/2019 Discontinued (Therapy comple belen) Cyclobenzaprine Take 1 tablet 60 tablet 0 06/20/19 1 (FLEXERIL) 5 mg by mouth 3 9 tabletIndications: Pain times daily in joint of left shoulder as needed for Muscle Spasms. 07/07/2019 Discontinued linaGLIPtin (TRADJENTA) 5 Take 1 tablet 30 tablet 3 mg tabletIndications: by mouth 9 Type 2 diabetes mellitus daily. treated with insulin 02/17/2019 Discontinued INSULIN SYRINGE 1mL Use as 100 Syringe 11 30GX5/16" directed 2 9 syringe-needleIndications vecdano al marian : Type 2 diabetes mellitus with insulin therapy 01/04/2019 clindamycin (CLEOCIN HCL) Take 1 30 capsule 0 150 mg capsule by 9 capsuleIndications: Right mouth 3 times hand pain daily for 10 days. 12/02/2019 Discontinued acetaminophen-codeine Take 1 po q 4 60 tablet 3 (TYLENOL/CODEINE #3) hours as 9 300-30 mg per needed for tabletIndications: Right pain. hand pain 02/20/2019 Discontinued (Duplicate Orde r) INSULIN SYRINGE 1mL Use as 100 Syringe 11 30GX5/16" directed 2 9 syringe-needleIndications veces al marian : Type 2 diabetes mellitus with insulin therapy 06/10/2019 Discontinued (Reorder) pen needle, diabetic 31 Inject under 1 Box 11 0 gauge x 3/16" the skin 9 needlesIndications: Type 2times daily. 2 diabetes mellitus treated with insulin 09/02/2019 Discontinued (Side effects) insulin glargine U-300 Inject 140 2000 mL 11 conc (TOUGOLDIE SOLOSTAR) units sc q am 0 300 unit/mL (1.5 mL) an inject 60 penIndications: Type 2 units sc q diabetes mellitus treated pm. with insulin 08/13/2019 benzonatate (TESSALON Take 1 20 capsule 0 07/26 PERLES) 100 mg capsule by 0 capsuleIndications: Cough mouth 3 times daily as needed for up to 7 days for Cough. Active Problems Problem Noted Date Dental caries extending into dentin 04/18/2017 Edentulism 04/06/2017 Chronic periodontitis, localized, severe 11/13/2016 Dental filling status 06/09/2016 Pain 04/26/2016 Severe uncontrolled diabetes mellitus 09/23/2015 Obesity, Class II, BMI 35-39.9 09/23/2015 Elbow pain, left 08/31/2013 Lesion of lip 03/17/2011 Rotator cuff disorder 05/12/2009 Polyneuropathy in diabetes(357.2) 12/03/2008 Encounters Care Team Description Date Type Specialty Saúl Hyman MD Right hand pain 12/02/2019 Refill Family Practice Axel Wade MD Severe uncontrolled diabetes mellitus (P rimary Dx) 09/02/2019 Telephonic Endocrinology Encounter Siomara Knott MD Cough (Primary Dx) 08/05/2019 Emergency Emergency Medicine Saúl Hyman MD Type 2 diabetes mellitus treated with in sulin (Primary Dx); Cough 08/05/2019 Office Visit Family Practice Milagros Lynne NP History of colon polyps (Primary Dx) 07/28/2019 Office Visit Gastroenterology Saúl Hyman MD Type 2 diabetes mellitus treated with in sulin 07/07/2019 Refill Family Practice Saúl Hyman MD Type 2 diabetes mellitus treated with in sulin (Primary Dx); Hypothyroidism, unspecified type; Medically noncompliant; Obesity, Class II, BMI 35-39.9; Severe uncontrolled diabetes mellitus 07/02/2019 Office Visit Family Practice Axel Wade MD Severe uncontrolled diabetes mellitus (P rimary Dx); Type 2 diabetes mellitus treated with insulin 06/10/2019 Office Visit Endocrinology Saúl Hyman MD Medication refill 06/02/2019 Refill Family Practice Saúl Hyman MD Encounter for vaccination (Primary Dx); Right hand pain; Type 2 diabetes mellitus treated with insulin 03/11/2019 Office Visit Family Practice Saúl Hyman MD Encounter for vaccination; Right hand pain; Type 2 diabetes mellitus treated with insulin 03/11/2019 Orders Only Family Practice Saúl Hyman MD Type 2 diabetes mellitus treated with in sulin (Primary Dx) 02/19/2019 Orders Only Family Practice Saúl Hyman MD Type 2 diabetes mellitus with insulin th erapy 02/17/2019 Refill Family Practice Tracy Arguelles DDS Irreversible pulpitis (Primary Dx) 02/04/2019 Office Visit Dentistry after 12/26/2018 Immunizations Name Administration Dates Next Due Influenza Vaccine 03/02/2016, 02/24/2015, , 03/05/2013, 03/16/2011, 04/01/2010, 04/05/2009 Influenza Vaccine, 03/30/2017 Seasonal, Injectable Influenza, 03/11/2019, 03/01/2018 Vaccine<FLUCELVAX>(Multi- Dose) PCV 13 (Pnuemococcal 03/11/2018 Conjugated 13 Valent) PPV 23 Pneumococcal 03/17/2014 Polysaccaride Tdap Tetanus, diphtheria, 10/13/2015 acellular pertussis Vaccine Family History Medical History Relation Name Comments Diabetes Brother Heart Father Diabetes Sister Heart Sister Relation Name Status Comments Brother Alive x2 Brother bro Daughter Alive Daughter Alive Father Alive Maternal Grandfather Maternal Grandmother Mother Alive Paternal Grandfather Paternal Grandmother Sister Alive Son Alive Son Alive Son Alive Social History Date Tobacco Use Types Packs/Day Years Used Never Smoker Smokeless Tobacco: Never Used Tobacco Cessation: Counseling Given: Yes Drinks/Week oz/Week Comments Alcohol Use No Food Insecurity Answer Date Recorded Within the past 12 months, you worried that your Never geno e 06/20/2018 food would run out before you got money to buy more. Within the past 12 months, the food you bought Never true 06/20/2018 just didn't last and you didn't have mo sharon to get more. Sex Assigned at Date Recorded Not on file Industry Job Start Date Occupation Not on file Not on file Not on file Travel End Travel History Travel Start No recent travel history available. Last Filed Vital Signs Reading Time Taken Comments Vital Sign 125/63 08/05/2019 10:17 PM CDT Blood Pressure 82 08/05/2019 10:17 PM CDT Pulse 36.7 C (98 F) 08/05/2019 10:17 PM CDT Temperature 18 08/05/2019 10:17 PM CDT Respiratory Rate 100% 08/05/2019 10:17 PM CDT Oxygen Saturation - - Inhaled Oxygen Concentration 71.7 kg (158 lb) 08/05/2019 10:10 AM CDT Weight 139.7 cm (4' 7") 08/05/2019 10:10 AM CDT Height 36.72 08/05/2019 10:10 AM CDT Body Mass Index Plan of Treatment Care Team Description Date Type Specialty Axel Wade MD [address] [place] [address] 8th [facility], [address] [address] 12/30/2019 Telephonic Endocrinology Encounter Health Maintenance Due Date Last Done Comments Breast Cancer Scrn 08/01/2019 07/31/2018, (Yearly) 06/26/2017, 06/27/2016, Additional history exists DM Retinal Exam (Yearly) 11/06/2019 11/05/2018, 10/09/2017, 09/13/2016, Additional history exists DM Foot Exam (Yearly) 07/02/2020 07/02/2019, 12/24/2018, 03/11/2018, Additional history exists DM HGBA1C (Yearly) 07/09/2020 07/09/2019, 01/21/2019, 11/05/2018, Additional history exists Colonoscopy 5yr 03/11/2024 03/11/2019, 03/19/2014 IMM Pneumococcal Age 67 Completed 03/11/2018 and Up Goals Goal Patient Associated Recent Progress Patient-Stat Aut hor Goal Type Problems ed? Eat Healthy Lifestyle No Elle العلي [employer]ODUCTION F[employer]ATER LOWER BLOOD GLUCOSE Lifestyle No Shayy Beltran Lower blood glucose Lifestyle No Elise Vail [employer]ODUCTION FLOATER Weight (lb) < 200 lb (90.7 kg) Weight 71.7 kg (158 lb) No Jono, (08/05/2019:10 AM Candi Nani CDT) Procedures Comments Procedure Name Priority Date/Time Associated Diag nosis [facility] EKG PROC 12 LEAD Routine 08/05/2019 EKG; TRACING ONLY 10:23 PM CDT XRAY CHEST 2 VIEWS STAT 08/05/2019 Cough 2:46 PM CDT GLUCOSE POC Routine 08/05/2019 2:11 PM CDT E[facility]G EKG PROC 12 LEAD Routine 08/05/2019 Type 2 d iabetes mellitus EKG; TRACING ONLY 11:10 AM CDT treated with insuli n Cough NONINVASV OXYGEN Routine 08/05/2019 Cough SATUR;SINGLE 10:47 AM CDT URINALYSIS Routine 07/09/2019 Type 2 diabetes mellitus 10:35 AM ESCALATION ENGINEER treated with insulin Hypothyroidism, unspecified type Medically noncompliant Obesity, Class II, BMI 35-39.9 Severe uncontrolled diabetes mellitus URINALYSIS Routine 07/09/2019 Type 2 diabetes mellitus 10:35 AM ESCALATION ENGINEER treated with insulin Hypothyroidism, unspecified type Medically noncompliant Obesity, Class II, BMI 35-39.9 Severe uncontrolled diabetes mellitus MICROALBUMIN / CREATININE Routine 07/09/2019 Type 2 diabetes mellitus URINE RATIO 10:35 AM ESCALATION ENGINEER treated with insuli n Hypothyroidism, unspecified type Medically noncompliant Obesity, Class II, BMI 35-39.9 Severe uncontrolled diabetes mellitus CBC Routine 07/09/2019 Type 2 diabetes mellitus 7:36 AM ESCALATION ENGINEER treated with insulin Hypothyroidism, unspecified type Medically noncompliant Obesity, Class II, BMI 35-39.9 Severe uncontrolled diabetes mellitus VIT D, 25-HYDROXY Routine 07/09/2019 Type 2 diabe kaitlin mellitus 7:36 AM ESCALATION ENGINEER treated with insulin Hypothyroidism, unspecified type Medically noncompliant Obesity, Class II, BMI 35-39.9 Severe uncontrolled diabetes mellitus THYROID STIMULATING Routine 07/09/2019 Type 2 marian betes mellitus HORMONE (TSH) 7:36 AM ESCALATION ENGINEER treated with insuli n Hypothyroidism, unspecified type Medically noncompliant Obesity, Class II, BMI 35-39.9 Severe uncontrolled diabetes mellitus LIVER PROFILE Routine 07/09/2019 Type 2 diabetes mellitus 7:36 AM ESCALATION ENGINEER treated with insulin Hypothyroidism, unspecified type Medically noncompliant Obesity, Class II, BMI 35-39.9 Severe uncontrolled diabetes mellitus LIPID PROFILE Routine 07/09/2019 Type 2 diabetes mellitus 7:36 AM ESCALATION ENGINEER treated with insulin Hypothyroidism, unspecified type Medically noncompliant Obesity, Class II, BMI 35-39.9 Severe uncontrolled diabetes mellitus BASIC METABOLIC PANEL Routine 07/09/2019 Type 2 d iabetes mellitus 7:36 AM ESCALATION ENGINEER treated with insulin Hypothyroidism, unspecified type Medically noncompliant Obesity, Class II, BMI 35-39.9 Severe uncontrolled diabetes mellitus CBC/DIFF Routine 07/09/2019 Type 2 diabetes mellitus 7:36 AM ESCALATION ENGINEER treated with insulin Hypothyroidism, unspecified type Medically noncompliant Obesity, Class II, BMI 35-39.9 Severe uncontrolled diabetes mellitus HEMOGLOBIN A1C Routine 07/09/2019 Type 2 diabetes mellitus 7:36 AM ESCALATION ENGINEER treated with insulin Hypothyroidism, unspecified type Medically noncompliant Obesity, Class II, BMI 35-39.9 Severe uncontrolled diabetes mellitus DIABETIC FOOT EXAM Routine 07/02/2019 Type 2 diab etes mellitus 8:29 AM ESCALATION ENGINEER treated with insulin Hypothyroidism, unspecified type Medically noncompliant Obesity, Class II, BMI 35-39.9 Severe uncontrolled diabetes mellitus LIPID PROFILE Routine 01/21/2019 Type 2 diabetes mellitus 7:15 AM CDT treated with insulin BASIC METABOLIC PANEL Routine 01/21/2019 Type 2 d iabetes mellitus 7:15 AM CDT treated with insulin HEMOGLOBIN A1C Routine 01/21/2019 Type 2 diabetes mellitus 7:15 AM CDT treated with insulin URIC ACID Routine 01/21/2019 Right hand pain 7:15 AM CDT after 12/26/2018 Results * 12 LEAD EKG (08/05/2019 10:23 PM CDT) 12 LEAD EKG FOR [facility] Test Date: 2019-08-05 Pat Name: BARRY CARMEN Department: [id number] Room: Gender: Coordinator Of Online Programs: HELEN : 1950 Requested By: SIOMARA Riley Order Number: [id number] Reading MD: Sebastian ADHIKARI Measurements Intervals [place] Rate: 71 P: 47 W[place]: 166 QRS: -6 QRSD: 82 T: 26 QT: 368 QTc: 401 Interpretive Statements SINUS RHYTHM LOW QRS VOLTAGE IN PRECORDIAL LEADS Motion artifact Poor R Wave Progression Abnormal ECG Electronically Signed On 08-06-2019 9:24:18 CDT by Sebastian ADHIKARI Specimen Performing Organization Address City/State/Zipcode Ph one Number SMS * XRAY CHEST 2 VIEWS (08/05/2019 2:46 PM CDT) Specimen Impressions Performed At IMPRESSION: [facility] No acute pleuropulmonary abnormality. Signed By: Preston Griggs MD, 08/05/2019 2:47 PM Narrative Performed At XRAY CHEST 2 VIEWS [facility] DATE: 08/05/2019 2:46 PM CLINICAL INDICATION: cough COMPARISON: Chest x-ray performed 2008 TECHNIQUE: PA and lateral views of the chest are obtained and submitted for interpretation. DISCUSSION: The lungs are clear. No consolidation o r airspace disease is identified. Costophrenic angles are sharp. There is no pleural effusion or pneumothorax. Cardiomediastinal silhouette is normal in size, contour and shape. The tracheal lumen is midline. No destructive or traumatic bony lesion is seen. Thoracic spondylosis is present. Surrounding soft tissues are unremarkab le. Procedure Note Interface, Rad/Mammog In - 08/05/2019 2:52 PM CDT XRAY CHEST 2 VIEWS DATE: 08/05/2019 2:46 PM CLINICAL INDICATION: cough COMPARISON: Chest x-ray performed 11/24/2008 TECHNIQUE: PA and lateral views of the chest are obtained and submitted for interpretation. DISCUSSION: The lungs are clear. No consolidation or airspace disease is identified. Costophrenic angles are sharp. There is no pleural effusion or pneumothorax. Cardiomediastinal silhouette is normal in size, contour and shape. The tracheal lumen is midline. No destructive or traumatic bony lesion is seen. Thoracic spondylosis is present. Surrounding soft tissues are unremarkable. IMPRESSION IMPRESSION: No acute pleuropulmonary abnormality. Signed By: Preston Griggs MD, 08/05/2019 2:47 PM Performing Organization Address [facility] one Number [facility] * POCT GLUCOSE POC docked device (08/05/2019 2:11 PM CDT) Glucose POC 187 (H) 74 - 106 mg/dL [facility] Specimen Blood Performing Organization Address [facility] one Number [facility] [address] [place] [address] * 12 LEAD EKG (08/05/2019 11:10 AM CDT) 12 LEAD EKG FOR [facility] Test Date: 2019-08-05 Pat Name: BARRY CARMEN Department: [id number] Room: Gender: F Coordinator Of Online Programs: [id number] : 1950 Requested By: SAÚL Verduzco Order Number: [id number] Reading MD: Kacy Arciniega MD Measurements Intervals [place] Rate: 74 P: 29 WY: 164 QRS: -11 QRSD: 89 T: 32 QT: 357 QTc: 398 Interpretive Statements SINUS RHYTHM Electronically Signed On 08-05-2019 11:55:39 CDT by Kacy Arciniega MD Specimen Performing Organization Address [facility] one Number SMS * Urinalysis (07/09/2019 10:35 AM ESCALATION ENGINEER) Color Yellow Colorless, Straw, [facility] Clarity Clear Clear [facility] Spec [place], 1.020 1.001 - 1.035 [facility] pH, Ur 6.0 5.0 - 8.0 [facility] Protein, Ur Negative Negative mg/dL [facility] Glucose, Ur 3+ (A) Negative mg/dL [facility] Ketone, Ur Negative Negative mg/dL [facility] Bilirubin, Ur Negative Negative mg/dL [facility] Nitrite, Ur Negative Negative [facility] Leukocyte Negative Negative mg/dL [facility] Blood, Ur Negative Negative mg/dL [facility] Urobilinogen, <1.0 <1.0 EU/dL [facility] Specimen Urine Performing Organization Address [facility] Ph one Number [facility] [address] [place] [address] [phone] * Microalbumin / Creatinine Urine Ratio (07/09/2019 10:35 AM ESCALATION ENGINEER) Pathologist [facility] Microalbumin, 4.7 <30.0 mg/dL [facility] Creatinine, 77 20 - 320 mg/dL [facility] Urine 61.0 (H) 0.0 - 30.0 mg/g [facility] Microalbumin [facility] Specimen Urine - Voided, urine Performing Organization Address [facility] Ph one Number [facility] [address] [place] [address] * CBC/Diff (07/09/2019 7:36 AM ESCALATION ENGINEER) WBC 7.5 4.5 - 11.0 K/uL [facility] RBC 4.30 4.20 - 5.40 M/uL [facility] Hemoglobin 13.1 12.0 - 16.0 g/dL [facility] Hematocrit 40.7 37.0 - 47.0 % [facility] MCV 94.7 (H) 82.0 - 92.0 fL [facility] MCH 30.5 27.0 - 32.0 pg [facility] MCHC 32.2 32.0 - 36.0 g/dL [facility] RDW 42.0 36.4 - 46.3 fL [facility] Platelet 270 150 - 400 K/uL [facility] Mean Platelet 11.2 9.4 - 12.4 fL [facility] Volume [facility] Percent NRBC 0.0 % [facility] Neutrophil 59.7 34.0 - 70.0 % [facility] Lymphs 31.6 20.0 - 50.0 % [facility] Monocytes 6.7 5.0 - 12.0 % [facility] Eos 1.5 0.7 - 5.0 % [facility] Basos 0.1 0.1 - 1.2 % [facility] Immature 0.4 0.0 - 0.5 % [facility] Granulocytes [facility] Neutrophils 4.45 1.56 - 6.13 K/uL [facility] (Absolute) [facility] Lymphs 2.36 1.18 - 3.74 K/uL [facility] (Absolute) [facility] Monocytes(Absol 0.50 (H) 0.24 - 0.36 K/uL [facility] sunshine) [facility] Eos (Absolute) 0.11 0.04 - 0.36 K/uL [facility] Baso (Absolute) 0.01 0.01 - 0.08 K/uL [facility] Immature Grans 0.03 0.00 - 0.03 K/uL [facility] (Abs) [facility] Absolute NRBC 0.00 K/uL [facility] Specimen Blood Performing Organization Address [facility] one Number [facility] [address] [place] [address] * Vitamin D, 25-Hydroxycalciferol (07/09/2019 7:36 AM ESCALATION ENGINEER) Vit D, 19.4 (L) 30.0 - 100.0 ng/mL [facility] 25-Hydroxy [facility] Vitamin D Deficient (A) Sufficient [facility] Interpretation Comment: [facility] Sufficient: >30.0 Insufficient: 20.0 - 29.9 Deficient: <20.0 Specimen Blood Performing Organization Address [facility] one Number [facility] [address] [place] [address] * Hemoglobin A1C (07/09/2019 7:36 AM ESCALATION ENGINEER) Only the most recent of 2 results within the time period is included. Hemoglobin A1c 9.3 (H) 4.3 - 6.1 % [facility] Estimated 220 (H) 70 - 110 mg/dL [facility] Average Glucose [facility] Specimen Blood Performing Organization Address [facility] one Number [facility] [address] [place] [address] [phone] * TSH [Thyroid Stimulating Hormone] (07/09/2019 7:36 AM ESCALATION ENGINEER) TSH 9.96 (H) 0.45 - 5.33 uIU/mL [facility] Comment: [facility] If , please see the following reference ranges (not verified by lab): 1st Trimester: 0.05 -3.70 uIU/mL 2nd Trimester: 0.31 -4.35 uIU/mL 3rd Trimester: 0.41 - 5.18 uIU/mL Specimen Blood Performing Organization Address [facility] one Number [facility] [address] [place] [address] * Liver Profile (07/09/2019 7:36 AM ESCALATION ENGINEER) [facility] Total Protein 6.6 6.0 - 8.3 g/dL [facility] Bilirubin, 0.2 0.2 - 1.2 mg/dL [facility] Total [facility] Alkaline 136 (H) 34 - 104 U/L [facility] Phosphatase [facility] AST 14 13 - 39 U/L [facility] Direct 0.0 0.0 - 0.2 mg/dL [facility] Bilirubin [facility] ALT 19 7 - 52 U/L [facility] Albumin 3.8 3.7 - 5.3 g/dL [facility] Specimen Blood Performing Organization Address [facility] one Number [facility] [address] [place] [address] [phone] * Lipid Profile (07/09/2019 7:36 AM ESCALATION ENGINEER) Only the most recent of 2 results within the time period is included. [facility] Cholesterol 205.0 (H) <=200.0 mg/dL [facility] Triglyceride 200 (H) <150 mg/dL [facility] HDL 55.0 See Reference Range [facility] Narrative. mg/dL [facility] LDL 110 (H) <100 mg/dL [facility] Comment: [facility] Optimal: < 100.0 mg/dL Near Optimal: 120-129 mg/dL Borderline: 130-159 mg/dL High: 160-189 mg/dL Very High: >=190 mg/dL Patient Yes [facility] Fasting? [facility] Specimen Blood Performing Organization Address [facility] one Number [facility] [address] [place] [address] [phone] * Basic Metabolic Panel (07/09/2019 7:36 AM ESCALATION ENGINEER) Only the most recent of 2 results within the time period is included. [facility] Sodium 136 136 - 145 mmol/L [facility] Potassium 4.6 3.5 - 5.1 mmol/L [facility] Chloride 100 98 - 107 mmol/L [facility] CO2 26 21 - 31 mmol/L [facility] Urea Nitrogen 15.0 7.0 - 25.0 mg/dL [facility] Creatinine 0.8 0.6 - 1.2 mg/dL [facility] Glucose 288 (H) 70 - 110 mg/dL [facility] Calcium 9.1 8.6 - 10.3 mg/dL [facility] GFR, Estimated 72 (L) >=90 mL/min/1.73 m2 [facility] Anion Gap 10 5 - 16 mmol/L [facility] Specimen Blood Performing Organization Address [facility] Ph one Number [facility] [address] [place] [address] * DIABETIC FOOT EXAM (07/02/2019 8:29 AM ESCALATION ENGINEER) Narrative Performed At Saúl Hyman MD 07/02/2019 10:4 2 AM Diabetic Foot Exam was performed at 07/02 8:29 AM. Right foot sensation is reduced, right foot pulses are reduced, right foot appearance is abnormal. Left foot sensation is r educed, left foot pulses are reduced, left foot appearance is abno rmal. * Uric Acid (01/21/2019 7:15 AM CDT) Uric Acid 5.2 2.3 - 6.6 mg/dL [facility] Specimen Blood Performing Organization Address [facility] Ph one Number [facility] [address] [place] [address] after 12/26/2018 Insurance Type Payer Benefit Subscriber ID Effective Phone Address Plan / Dates Group [employer] HMO [employer] xxxxxxxxx 2019-P [address] [address] [place] [address] [place] [id number] xxxxxxxxx 2017-P [phone] [id number] MEDICARE [place], [place] [id number] Y [facility] PLAN FINANCIAL xxxxxx 2018-8 [address] [place] [address]
== END 2019-12-27 15:17 | disposition home or self-care (01) ==
LOC: ER 14:40
DX: U07.1 COVID-19 (principal); R50.9 Fever, unspecified; R19.7 Diarrhea, unspecified; I10 Essential (primary) hypertension; E11.9 Type 2 diabetes mellitus without complications; E78.5 Hyperlipidemia, unspecified; K21.9 Gastro-esophageal reflux disease without esophagitis
CPT/HCPCS: 99283